=== PATIENT | female | born 2000 | race Caucasian/White ===

== ENCOUNTER 2025-06-17 11:04 | Emergency (ER) | payer MEDICAID, SELFPAY ==
[2025-06-17 11:08] VITALS: BP 125/89; PULSE 76; RESP 16; O2SAT 98
[2025-06-17 11:21] LABS: Glucose Negative (Negative)
[2025-06-17 11:30] LABS: C & S Indicated? No; WBC 0-2 HPF (0-5)
--- NOTE | 2025-06-17 11:50 | W.ED.GENAD ---
Discharge Plan Disposition Patient Disposition: Home Condition: Stable Discharge Details Clinical Impression: Vaginal bleeding affecting early Primary Care Provider: Esthela Marroquin ED Provider: Consuelo Morrison Home Meds and New Rx's Prescriptions: No Action PNV no.95-ferrous fumarate-FA [] 28 mg iron- 800 mcg tablet 1 tab PO DAILY Discharge Instructions Instructions: Bleeding in Early (DC) Additional Instructions: You were seen in the emergency department today for evaluation of vaginal bleeding in early . In our department had a full physical examination performed and had an ultrasound that at this time does show an appropriate heart rhythm. Your cervix is open to fingertip, and you had laboratory studies drawn which do not show any sign of anemia or problems with the blood clotting. Your hormone today is 40,845. You will need to have this level rechecked in 48 hours. Your clinic may also choose to repeat your exam and your ultrasound. It is possible that you are experiencing the early stages of a miscarriage, though certainly there are other reasons for bleeding in early . If you have heavy bleeding and saturate a pad within an hour for more than 2 hours in a row you need to return to the emergency department for reevaluation. Please follow-up with your primary care provider in the next few days to discuss this visit and any symptoms that change, worsen, or persist. Thank you for allowing us to be part of your care. Stand Alone Forms: Work Release HPI General Mode of arrival: ambulatory. Date/Time Provider Initiated Documentation: 06/17/25 11:06. Limitations to Documentation: no limitations. Information obtained by: patient, family and old records reviewed. HPI Narrative: This is a 25-year-old female patient, G7, P1 with a history of multiple early losses, presenting for evaluation of vaginal bleeding in early . The patient is 10 weeks gestation by ultrasound, which was performed at [facility] where the patient lives. She is up here visiting for the weekend, states that she woke up in her normal state of health but then felt some vaginal bleeding with passage of small clots this morning. She has not been saturating a pad, denies abdominal tenderness but has had some soreness in her low back. Prior to this that she was not experiencing any new vaginal discharge or dysuria. No history of abdominal surgeries, prior delivery was vaginal. The patient plans to return home on Thursday. Related Data Home Medications ?Medication ?Instructions ?Recorded ?Confirmed vit no.95-ferrous 1 tab PO DAILY 06/17/25 06/17/25 fumarate 28 mg-folic acid 800 mcg tablet () Allergies Allergy/AdvReac Type Severity Reaction Status Date / Time No Known Allergies Allergy Unverified 06/17/25 11:12 General Stated Complaint: ALTERATION [employer]IST TRACEY: 3 Exam Narrative Exam Narrative: Gen: Awake and alert, in no apparent distress HEENT: Non-icteric sclera Neck: Supple Lungs: No apparent respiratory distress, normal respiratory effort. CV: Appears well perfused, strong distal pulses Abdomen: Non-distended, soft, nontender to palpation without rigidity, rebound, or guarding. : Pelvic examination supervised by BABS Wood, revealing normal external female genitalia, and scant dark red blood from a cervical os that is open to fingertip. No large clots or products of conception visualized, no cervical motion tenderness. MSK: Moves 4 extremities without apparent limitation in ROM Skin: Visualized skin without rashes, cyanosis. Neuro: Normal Gait, no obvious focal deficits or facial asymmetry. Speaks in full, clear sentences. Psych: Appropriate for situation. Course Vital Signs Vital signs: Vital Signs Pulse 76 06/17/25 11:08 Respiratory Rate 16 06/17/25 11:08 Blood Pressure 125/89 06/17/25 11:08 Pulse Oximetry 98 06/17/25 11:08 Pulse 76 06/17/25 11:08 Respiratory Rate 16 06/17/25 11:08 Blood Pressure 125/89 06/17/25 11:08 Blood Pressure Position Sitting 06/17/25 11:08 Pulse Oximetry 98 06/17/25 11:08 Oxygen Delivery Method Room Air 06/17/25 11:08 Oxygen Flow Rate 0 06/17/25 11:08 Pain Level 7 06/17/25 11:18 Lab/Test Results Lab/Test Results: Laboratory Tests Range/Units 06/17/25 11:17 Urine Color (Yellow) Yellow Urine Clarity (Clear) Clear Urine pH (5-8) 6.5 Ur Specific [place] (1.005-1.025) <= 1.005 Urine Protein (Neg-Trace) mg/dL Negative Urine Ketones (Negative) mg/dL Negative Urine Blood (Negative) Large H Urine Nitrite (Negative) Negative Urine Bilirubin (Negative) Negative Urine Urobilinogen (Up to 0.2) mg/dL 0.2 Ur Leukocyte Esterase (Negative) Negative Urine RBC (0-2) HPF 5-10 H Urine WBC (0-5) HPF 0-2 Ur Epithelial Cells (Negative) HPF Rare Urine Crystals (Negative) HPF Negative Urine Bacteria (Negative) HPF Rare Urine Casts (Negative) LPF Negative Urine Mucus (Negative) Negative Ur Culture Indicated? No Urine Glucose (Negative) mg/dL Negative Medical Decision Making This is a 25-year-old female patient presenting for evaluation of vaginal bleeding in early . My differential includes but is not limited to miscarriage including threatened, inevitable, complete. No fever or tachycardia to suggest septic . Certainly considered other causes of vaginal bleeding besides loss, such as subchorionic hemorrhage, placenta previa, coagulopathy, implantation bleeding. Large-volume bleeding to increase my concern significantly for anemia. The ultrasound performed showed appropriate cardiac activity, the cervical os is open to fingertip, which may represent inevitable , though may certainly be within the range of normal for this patient who has had a previous vaginal delivery. We will obtain labs to include CBC, CMP, magnesium, coags, and beta-hCG. Urinalysis was obtained which shows blood but no evidence of infectious findings, consistent with her vaginal bleeding. - I reviewed the patient's laboratory studies, which show no significant leukocytosis, anemia, or thrombocytopenia. Chemistry panel reveals no electrolyte derangements, no evidence of kidney or liver dysfunction. Coags are normal, beta-hCG is appropriately elevated at 40,000. I counseled the patient on expectant management, she will require a beta hCG recheck in 48 hours, and I counseled her on vaginal bleeding return precautions. At this time, the patient has had a full medical evaluation and is safe for discharge to home. They are hemodynamically stable, ambulatory, and tolerating PO. They are understanding of the follow-up plan and return precautions. They left our facility without incident. Consuelo Morrison MD [facility] All Active Problems (Updated 06/17/25 @ 13:27 by Consuelo Morrison MD) Vaginal bleeding affecting early (Acute) Social History Smoking risk assessment performed?: No POCUS Exam (ED) Limited OB Exam DATE OF EXAM:: 06/17/25 TIME OF EXAM:: 11:30 PROVIDER THAT PERFORMED THE STUDY: Consuelo Morrison Type of Exam: Pelvic OB Trans Abdominal REASON FOR EXAM: Vaginal Bleeding VISUALIZED STRUCTURES: Poll, Gestational sac, Uterus and Yolk sac PERTINENT FINDINGS/IMPRESSION: cardiac activity Exam Complete.
[2025-06-17 12:25] LABS: Abs Immature Grans 0.03 10^3/uL (0.0-0.06); HCT 34.8 % (36.0-46.0); HGB 11.5 g/dL (11.2-15.7); Immature Grans % 0.3 %; MCH 26.4 pg (27.0-33.0); MCHC 33.0 % (32.0-36.0); MCV 80 fL (80-95); MPV 10.2 fL (8.0-11.0); Platelet Count 282 10^3/uL (130-400); RBC 4.35 10^6/uL (3.93-5.22); RDW 19.3 % (11.7-14.6); RDW-SD 56.3 fL; WBC 11.52 10^3/uL (4.4-10.8)
[2025-06-17 12:37] LABS: INR 0.9 (0.9-1.1); PTT Activated 25.6 sec (20.6-30.2); Prothrombin Time 9.5 sec (9.1-11.1)
[2025-06-17 13:00] LABS: ALT 31 U/L (14-59); AST 12 U/L (15-37); Albumin 3.4 g/dL (3.4-5.0); Alkaline Phosphatase 70 U/L (46-116); Anion Gap 9.3 mmol/L (3-11); BUN 7 mg/dL (7-18); Bilirubin, Total 0.4 mg/dL (0.2-1.0); CO2 25.7 mmol/L (21.0-32.0); Calcium 8.5 mg/dL (8.5-10.1); Chloride 102 mmol/L (98-107); Estimated GFR 126.09 (mL/min/1.73m2); Glucose 89 mg/dL (74-106); Magnesium 2.1 mg/dL (1.8-2.4); Potassium 3.9 mmol/L (3.5-5.1); Sodium 137 mmol/L (136-145); Total Protein 7.3 g/dL (6.4-8.2)
[2025-06-17 13:01] LABS: HCG Quant, Pregnancy 40845 mIU/mL (1-3)
[2025-06-17 13:23] VITALS: BP 115/76; PULSE 78; RESP 16; O2SAT 96
== END 2025-06-17 13:37 | disposition home or self-care (01) ==
PROVIDERS: Emergency Provider Emergency Medicine
DX: O20.9 Hemorrhage in early pregnancy, unspecified (principal); Z3A.10 10 weeks gestation of pregnancy; Z87.59 Personal history of other complications of pregnancy, childbirth and the puerperium
CPT/HCPCS: 36415; 76815; 80053; 81003; 81015; 83735; 84702; 85025; 85610; 85730; 99284